=== PATIENT | female | born 1970 | race Caucasian/White ===

== ENCOUNTER → 2017-06-08 | Outpatient (CLI) | payer OTHER, MEDICARE ==
[~2017-06-08] MED LIST: ALBU8.5H8 INH; CETI10CA PO; ERGO500017 PO; ETAN25DI SC; FOLI-17 PO; GABA600T PO; TIZA4TAB9 PO
== END ==
LOC: STAR 10:35
PROVIDERS: ATTEND Otolaryngology
DX: Z02.9 Encounter for administrative examinations, unspecified (principal)

== ENCOUNTER 2017-06-13 05:29 | Day surgery (SDC) | payer OTHER, MEDICARE ==
[~2017-06-13] VITALS: Ht 165.1 cm; Wt 77.7 kg
[2017-06-13] MEDS ORDERED: LACTATED RINGERS 1,000 ML IV SCH (06:11)
[2017-06-13 06:39] VITALS: BP 112/74
[2017-06-13] MEDS ORDERED: LIDOCAINE/PF 1%, 30ML ONE (07:02)
[2017-06-13] MEDS ORDERED: BACITRACIN OINT 500U/GM, 15 GM ONE (07:02)
[2017-06-13] MEDS ORDERED: FLUORESCEIN OPHTHALMIC 1 MG STRIP ONE (07:02)
[2017-06-13] MEDS ORDERED: EPINEPHRINE TOPICAL SOLN 1 MG/ML, 30ML ONE (07:02)
[2017-06-13] MEDS ORDERED: FENTANYL PF 100 MCG/2ML ONE ×2 (07:03)
[2017-06-13] MEDS ORDERED: MIDAZOLAM 1 MG/ML, 2ML ONE (07:03)
[2017-06-13] MEDS ORDERED: OXYMETAZOLINE NASAL SPRAY 0.05%, 15ML ONE (07:03)
[2017-06-13] MEDS ORDERED: EPINEPHRINE 1 MG/ML, 1ML ONE (07:03)
[2017-06-13] MEDS ORDERED: SUCCINYLCHOLINE 20 MG/ML, 10ML ONE (07:43)
[2017-06-13] MEDS ORDERED: DEXAMETHASONE 4 MG/ML, 1ML ONE (07:43)
[2017-06-13] MEDS ORDERED: PROPOFOL 10 MG/ML, 20ML ONE (07:43)
[2017-06-13] MEDS ORDERED: ONDANSETRON 2MG/ML, 2ML ONE (07:43)
[2017-06-13] MEDS ORDERED: CEFAZOLIN 1,000 MG ONE (07:43)
[2017-06-13] MEDS ORDERED: ROCURONIUM 10 MG/ML ONE (07:43)
[2017-06-13] MEDS ORDERED: LABETALOL 5MG/ML, 20ML IV PRN (08:30)
[2017-06-13] MEDS ORDERED: METOCLOPRAMIDE 5 MG/ML, 2ML IV PRN (08:30)
[2017-06-13] MEDS ORDERED: ONDANSETRON 2MG/ML, 2ML IVPush PRN (08:30)
[2017-06-13] MEDS ORDERED: HYDROmorphone 1 MG/ML, 1ML IV PRN (08:30)
[2017-06-13] MEDS ORDERED: FENTANYL PF 100 MCG/2ML IV PRN (08:30)
[2017-06-13] MEDS ORDERED: OXYcodone 5 MG/5 ML ORAL.SOL UDC PO PRN (08:30)
[2017-06-13] MEDS ORDERED: hydrALAzine 20 MG/ML, 1ML IV PRN (08:30)
[2017-06-13] MEDS ORDERED: ACETAMINOPHEN 325 MG TABLET PO PRN (08:30)
[2017-06-13] MEDS ORDERED: ACETAMINOPHEN 650 MG/20.3 ML UDC ONE (10:01)
[2017-06-13] MEDS ORDERED: OXYcodone 5 MG/5 ML ORAL.SOL UDC ONE (10:02)
== END 2017-06-13 11:55 ==
LOC: OUT 05:29
PROVIDERS: ATTEND Otolaryngology
DX: J32.9 Chronic sinusitis, unspecified (principal); M06.80 Other specified rheumatoid arthritis, unspecified site
CPT/HCPCS: 31255; 31267; 31276; 31287; 61782; 87070; 87075; 87205; 88304; J0171; J0330; J0690; J1100; J2250; J2405; J2704; J3010; J3490; J7120